=== PATIENT | female | born 1995 | race African-American/Black ===

== ENCOUNTER → 2019-11-02 | Outpatient (CLI) | payer OTHER ==
--- NOTE | 2019-11-02 09:42 | Diagnostic Imaging Report ---
PROCEDURE: MR imaging of the brain without contrast. TECHNIQUE: Multiplanar, multisequence MR imaging of the brain was performed without contrast. INDICATION: Blurred vision. Headaches. History of tremors. COMPARISON: None. FINDINGS: There are several large areas of abnormal T2/FLAIR bright signal within the bilateral cerebral hemispheres as well as the brainstem. A few areas of involvement are also noted within the right cerebellar hemisphere. The largest confluent areas of involvement within the cerebral hemispheres are identified posteriorly involving the parietal and occipital lobes. There are a few scattered more punctate areas of involvement within the subcortical deep white matter of the posterior frontal lobes. Note is also made of a moderate sized area of involvement of the right temporal lobe. Additionally, there is significant involvement of the brainstem extending from the midbrain through to the junction of the elisabeth and medulla. There is no associated hemorrhage or infarct. There is no mass effect or midline shift. Midline craniocervical anatomy is maintained. Major expected intracranial flow voids are identified. No other extra-axial masses or fluid collections are seen. Bony calvarium is intact. Paranasal sinuses and mastoid air cells are clear. IMPRESSION: 1. Multiple abnormal areas of T2/FLAIR bright signal within the bilateral cerebral hemispheres, right cerebellum, and brainstem. Appearance is nonspecific but raises concern for an underlying demyelinating process such as advanced multiple sclerosis. Encephalitis, PRES or ADEM are also considerations. Metastatic disease cannot be excluded. Further evaluation with post contrast MR of the brain, pre- and post-contrast MR of the cervical spine, and correlation with CSF flow studies is strongly encouraged. 2. No intracranial hemorrhage, mass effect, or infarct. Dictated by: Dictated on workstation # [id number]
== END ==
LOC: RAD 07:55
PROVIDERS: ATTEND Nurse Practitioner Family
DX: G04.90 Encephalitis and encephalomyelitis, unspecified (principal); H53.8 Other visual disturbances; R25.1 Tremor, unspecified
CPT/HCPCS: 70551

== ENCOUNTER → 2019-11-03 | Outpatient (CLI) | payer OTHER ==
[2019-11-03 17:26] LABS: HEMOGLOBIN 12.7 G/DL (11.5-16.0); MEAN PLATELET VOLUME 11.3 FL (7.4-10.4); RED CELL DISTRIBUTION WIDTH 12.1 % (10.0-14.5); WHITE BLOOD COUNT 6.2 10^3/uL (4.3-11.0)
[2019-11-03 17:31] LABS: ALBUMIN 4.3 GM/DL (3.2-4.5); CHLORIDE 105 MMOL/L (98-107); POTASSIUM 3.6 MMOL/L (3.6-5.0); SODIUM 137 MMOL/L (135-145)
[2019-11-03 17:32] LABS: CALCIUM 9.3 MG/DL (8.5-10.1)
[2019-11-03 17:34] LABS: GLUCOSE 82 MG/DL (70-105); TOTAL PROTEIN 8.1 GM/DL (6.4-8.2)
[2019-11-03 17:35] LABS: BILIRUBIN,TOTAL 0.4 MG/DL (0.1-1.0); CARBON DIOXIDE 22 MMOL/L (21-32)
[2019-11-03 17:37] LABS: ALKALINE PHOSPHATASE 99 U/L (40-136); CREATININE SERUM 0.94 MG/DL (0.60-1.30); GFR ESTIMATED > 60
[2019-11-03 17:38] LABS: BUN/CREATININE RATIO 11
[2019-11-03 17:40] LABS: ALANINE AMINOTRANSFERASE 12 U/L (0-55)
== END ==
LOC: LAB 16:55
PROVIDERS: ATTEND Nurse Practitioner Family
DX: R51 Headache (principal); R25.1 Tremor, unspecified
CPT/HCPCS: 36415; 80053; 82607; 82746; 83036; 84443; 85027; 85652; 86038; 86039; 86141; 86592; 86703

== ENCOUNTER → 2019-11-08 | Outpatient (CLI) | payer OTHER ==
[~2019-11-08] MED LIST: GADOBUTROL 10 MMOL/10 ML (GADAVIST) VIAL IV ONE
--- NOTE | 2019-11-08 14:24 | Diagnostic Imaging Report ---
PROCEDURE: MR imaging of the brain with contrast. TECHNIQUE: Multiplanar, multisequence MR imaging of the brain was performed with contrast. INDICATION: Uncontrolled tremors. COMPARISON: MRI brain on 11/02/2019. FINDINGS: Faint enhancement is seen in the peritrigonal white matter bilaterally in the area of previously visualized T2 hyperintense signal. No evidence of enhancing underlying lesions is seen. No midline shift or mass effect. No evidence of acute obstructive hydrocephalus. No findings to suggest developing infarct. IMPRESSION: 1. Faint enhancement in the peritrigonal white matter bilaterally in the area of previously visualized T2 hyperintense signal. No underlying enhancing lesions are seen to suggest metastatic disease. The differential of demyelinating disease such as multiple sclerosis and ADEM are still favored with PRES or encephalitis not excluded. Dictated by: Dictated on workstation # [id number]
== END ==
LOC: RAD 13:07
PROVIDERS: ATTEND Nurse Practitioner Family
DX: G35 Multiple sclerosis (principal); R51 Headache; R25.1 Tremor, unspecified
CPT/HCPCS: 70552

== ENCOUNTER → 2019-11-09 | Outpatient (CLI) | payer OTHER ==
--- NOTE | 2019-11-09 15:05 | Diagnostic Imaging Report ---
PROCEDURE: MR imaging cervical spine with and without contrast. TECHNIQUE: Multiplanar and multisequence MRI of the cervical spine was performed with and without contrast. INDICATION: Uncontrolled tremors. FINDINGS: Alignment of the cervical spine is normal. No geographic marrow lesion is seen. There is normal height and signal intensity to the cervical intervertebral discs. Abnormal T2 signal is identified within the spinal cord at the C7-T1 level. This area measures approximately 17 mm cephalocaudal x 6 mm AP x 7 mm transverse. Abnormal signal in the elisabeth is noted and seen on recent MRI brain. No other signal abnormalities are seen. There is questionable vague enhancement of the area of abnormal T2 signal within the cord at C7-T1. No other abnormal regions of enhancement are identified. IMPRESSION: Abnormal cord signal at the C7-T1 level. No abnormal expansion of the cord is identified. This does demonstrate some mild contrast enhancement and again is suspicious for demyelinating process. Dictated by: Dictated on workstation # [id number]
== END ==
LOC: RAD 13:59
PROVIDERS: ATTEND Nurse Practitioner Family
DX: G35 Multiple sclerosis (principal)
CPT/HCPCS: 72156